=== PATIENT | female | born 1995 | race Caucasian/White ===

== ENCOUNTER 2020-05-20 14:40 | Emergency (ER) | payer MEDICAID, OTHER ==
[~2020-05-20] VITALS: Ht 160 cm; Wt 59.1 kg
[2020-05-20 16:06] LABS: APPEARANCE,URINE TURBID (CLEAR); BILIRUBIN,URINE NEGATIVE (NEGATIVE); GLUCOSE, URINE (UA) NEGATIVE (NEGATIVE); KETONES,URINE TRACE mg/dL (NEGATIVE); LEUKOCYTE ESTERASE ,URINE LARGE (NEGATIVE); NITRATE,URINE NEGATIVE (NEGATIVE); OCCULT BLOOD,URINE LARGE (NEGATIVE); PH,URINE 7.5 (5.0-8.0); PROTEIN,URINE SEE CONFIRM (NEGATIVE)
[2020-05-20 16:15] LABS: SULFOSALICYLIC ACID,URINE 3+ (Negative)
[2020-05-20 16:16] LABS: RBC,URINE >100 /HPF (0-2)
[2020-05-20 16:17] LABS: BACTERIA,URINE Many /HPF (None Seen); SQUAMOUS EPITHELIAL CELL,UR Moderate /LPF (None Seen); WBC,URINE >100 /HPF (0-5)
[2020-05-20 16:19] LABS: AMORPHOUS SEDIMENT,UR Many /LPF (None Seen)
[2020-05-20 17:00] VITALS: BP 121/76
== END 2020-05-20 17:38 | disposition home or self-care (01) ==
LOC: EMS 14:40
DX: N39.0 Urinary tract infection, site not specified (principal); N83.202 Unspecified ovarian cyst, left side
CPT/HCPCS: 76856; 87086

== ENCOUNTER 2022-05-18 17:56 | Emergency (ER) | payer MEDICAID ==
[~2022-05-18] VITALS: Ht 154.9 cm; Wt 59.1 kg
[2022-05-18 18:26] LABS: BASOPHILS % (AUTO) 0.7 % (0.0-2.0); EOSINOPHILS % (AUTO) 1.5 % (1.0-6.0); HEMATOCRIT 34.4 % (36-46); HEMOGLOBIN 10.8 g/dL (12.0-16.0); LYMPHOCYTES # (AUTO) 2.2 K/uL (1.0-4.8); LYMPHOCYTES % (AUTO) 29.5 % (22.0-44.0); MEAN CORPUSCULAR HEMOGLOBIN 22.5 pg (26.0-34.0); MEAN CORPUSCULAR HGB CONC 31.3 G/dL (31.0-37.0); MEAN CORPUSCULAR VOLUME 72 fL (80-100); MONOCYTES # (AUTO) 0.5 K/uL (0.1-1.0); MONOCYTES % (AUTO) 7.5 % (2.0-9.0); NEUTROPHILS # (AUTO) 4.5 K/uL (1.8-7.7); NEUTROPHILS % (AUTO) 60.8 % (40.0-70.0); PLATELET COUNT (AUTO) 372 K/uL (150-450); RED BLOOD CELL COUNT(AUTO) 4.79 MIL/uL (4.00-5.20); RED CELL DISTRIBUTION WIDTH 17.6 % (11.5-14.5)
[2022-05-18 18:32] LABS: ANION GAP 8 mmol/L (8-16); CALCIUM, TOTAL 8.8 mg/dL (8.8-10.5); CARBON DIOXIDE 26 mmol/L (22-29); CHLORIDE 107 mmol/L (98-107); CREATININE 0.66 mg/dL (0.60-1.30); GLOMERULAR FILTR. RATE CALC > 60 mL/min (>60); GLUCOSE,RANDOM 101 mg/dL (70-110); POTASSIUM 3.5 mmol/L (3.5-5.1); SODIUM SERUM 141 mmol/L (136-145); UREA NITROGEN, BLOOD 12 mg/dL (7-18)
[2022-05-18 18:40] LABS: ALANINE AMINOTRANSFERASE 51 U/L (12-78); ALBUMIN 3.3 g/dL (3.4-5.0); ALKALINE PHOSPHATASE 85 U/L (46-116); ASPARTATE AMINOTRANSFERASE 25 U/L (15-37); BILIRUBIN,TOTAL 0.3 mg/dL (0.1-1.0); TOTAL PROTEIN, SERUM 7.5 g/dL (6.4-8.2)
[2022-05-18 19:55] VITALS: BP 107/73
== END 2022-05-18 20:04 | disposition home or self-care (01) ==
LOC: EMS 17:57
DX: S02.2XXA Fracture of nasal bones, initial encounter for closed fracture (principal); S05.11XA Contusion of eyeball and orbital tissues, right eye, initial encounter; S20.212A Contusion of left front wall of thorax, initial encounter; Z98.890 Other specified postprocedural states; Y04.8XXA Assault by other bodily force, initial encounter; Y93.89 Activity, other specified; Y92.89 Other specified places as the place of occurrence of the external cause; Y99.8 Other external cause status
CPT/HCPCS: 70450; 70486; 71101; 80053; 84703; 85025; 99285

== ENCOUNTER 2024-08-31 00:28 | Emergency (ER) | payer OTHER ==
[~2024-08-31] VITALS: Ht 149.9 cm; Wt 63.6 kg
[2024-08-31 00:41] VITALS: BP 125/74; PULSE 73; RESP 18; TEMP 98.6; O2SAT 100
[2024-08-31 01:09] LABS: COVID AG,FIA SOURCE NASAL SWAB
[2024-08-31 01:17] LABS: RAPID GROUP A STREP NEGATIVE (NEGATIVE)
[2024-08-31 01:18] LABS: INFLUENZA TYPE A NEGATIVE FOR TYPE A (NEGATIVE); INFLUENZA TYPE B NEGATIVE FOR TYPE B (NEGATIVE); SARS-COV2 (COVID) ANTIGEN,FIA Negative (Negative)
[2024-08-31 01:50] LABS: BASOPHILS % (AUTO) 0.9 % (0.0-2.0); EOSINOPHILS % (AUTO) 2.8 % (1.0-6.0); HEMOGLOBIN 10.1 g/dL (12.0-16.0); LYMPHOCYTES # (AUTO) 2.4 K/uL (1.0-4.8); LYMPHOCYTES % (AUTO) 31.3 % (22.0-44.0); MEAN CORPUSCULAR HEMOGLOBIN 20.8 pg (26.0-34.0); MEAN CORPUSCULAR HGB CONC 30.6 G/dL (31.0-37.0); MEAN CORPUSCULAR VOLUME 68 fL (80-100); MONOCYTES # (AUTO) 0.6 K/uL (0.1-1.0); MONOCYTES % (AUTO) 8.2 % (2.0-9.0); NEUTROPHILS # (AUTO) 4.3 K/uL (1.8-7.7); NEUTROPHILS % (AUTO) 56.8 % (40.0-70.0); PLATELET COUNT (AUTO) 430 K/uL (150-450); RED BLOOD CELL COUNT(AUTO) 4.86 MIL/uL (4.00-5.20); RED CELL DISTRIBUTION WIDTH 18.4 % (11.5-14.5); WHITE BLOOD COUNT (AUTO) 7.6 K/uL (4.5-11.0)
[2024-08-31 02:00] LABS: ANION GAP 8 mmol/L (8-16); CARBON DIOXIDE 27 mmol/L (22-29); CHLORIDE 105 mmol/L (98-107); GLUCOSE,RANDOM 87 mg/dL (70-110); POTASSIUM 3.9 mmol/L (3.5-5.1); SODIUM SERUM 140 mmol/L (136-145); UREA NITROGEN, BLOOD 16 mg/dL (7-18)
[2024-08-31 02:01] LABS: GLOMERULAR FILTR. RATE CALC > 60 mL/min (>60)
[2024-08-31 02:06] LABS: ALANINE AMINOTRANSFERASE 55 U/L (12-78); ALBUMIN 3.3 g/dL (3.4-5.0); ALKALINE PHOSPHATASE 94 U/L (46-116); ASPARTATE AMINOTRANSFERASE 30 U/L (15-37); BILIRUBIN,TOTAL 0.2 mg/dL (0.1-1.0); TOTAL PROTEIN, SERUM 7.8 g/dL (6.4-8.2)
[2024-08-31] MEDS ORDERED: IBUP-1554 PO (03:02)
[2024-08-31] MEDS ORDERED: CEPH-558 PO (03:02)
[2024-08-31] MEDS ORDERED: ONDA-104 PO (03:02)
[2024-08-31] MEDS ORDERED: ACET-66 PO (03:02)
[2024-08-31] MEDS: ACETAMINOPHEN 500 MG TABLET PO ONE (03:12)
[2024-08-31] MEDS: ONDANSETRON 4 MG TABLET PO ONE (03:12)
[2024-08-31] MEDS: CEPHALEXIN MONOHYDRATE 250 MG CAPSULE PO ONE (03:12)
[2024-08-31 03:54] LABS: RBC MORPHOLOGY COMMENT ABNORMAL RBC MORPH
== END 2024-08-31 03:13 | disposition home or self-care (01) ==
LOC: EMS 00:29
DX: J06.9 Acute upper respiratory infection, unspecified (principal); R11.2 Nausea with vomiting, unspecified; Z20.822 Contact with and (suspected) exposure to COVID-19; Z98.890 Other specified postprocedural states
CPT/HCPCS: 99284; 87426; 80048; 80076; 85025; 87430; 87804; 36415; Q0162